=== PATIENT | female | born 1965 ===

== ENCOUNTER 2017-12-06 09:54 | Outpatient (CLI) | payer OTHER ==
--- NOTE | 2017-12-06 14:01 | Diagnostic Imaging Report ---
Indication: Right upper quadrant pain, history of recent liver biopsy Technique: Cadena-scale and duplex images of the upper abdomen were obtained Comparison: none Findings: Gallbladder is unremarkable, without stones, wall thickening, nor pericholecystic fluid. Sonographic Martino's sign is negative. Common bile duct measures mm in diameter. No intrahepatic biliary ductal dilatation. Liver demonstrates borderline increased with echogenicity, no focal abnormality. No surface nodularity Portal vein and hepatic veins are patent. Pancreas is unremarkable. Spleen is unremarkable. Left kidney measures 10.2 cm in length. Right kidney measures 10.5 cm length. Both kidneys demonstrate normal echogenicity. There is no hydronephrosis. Probable prominent column of Mariusz seen in the right kidney. Small left renal sinus calcifications demonstrated. Small calcifications are also seen in the spleen. Non-aneurysmal abdominal aorta . Impression: Negative for gallstones or dilated ducts Slightly increased hepatic echogenicity, consistent with hepatocellular disease, most likely fatty change Suspect nonobstructive left renal calyceal calcification Punctate splenic calcifications, likely on the basis of old granulomatous disease
== END 2017-12-06 11:54 | disposition home or self-care (01) ==
LOC: ULS 09:54
DX: R10.11 Right upper quadrant pain (principal)
CPT/HCPCS: 76700